=== PATIENT | female | born 1975 | race Caucasian/White ===

== ENCOUNTER → 2021-03-01 | Outpatient (CLI) | payer BC ==
[~2021-03-01] MED LIST: ALBUTEROL INH; ALDACTONE50 MG PO; ASPIR 8181 MG PO; GLUCOPHAGE1000 MG PO; HYDROCHLOROTHIA25 MG PO; NORCO 5-325 TA1 EACH PO; NOVOLOG MI100 UNIT/2 SQ; OMNICEF 300 MG300 MG PO; ONDANSETRON ODT8 MG SL; SYNTHROID50 MCG PO; TOUJEO MAX300 UNIT/1 SQ; TRULICITY1.5 MG/0.5 SQ; VITAMIN D PO
== END ==
LOC: DTC 09:40
DX: E11.65 Type 2 diabetes mellitus with hyperglycemia (principal)
CPT/HCPCS: G0108

== ENCOUNTER → 2021-06-25 | Outpatient (CLI) | payer BC ==
[2021-06-25 15:07] LABS: BUN/CREATININE RATIO 19 (0-10)
== END ==
LOC: LAB 10:59
PROVIDERS: Emergency Medicine
DX: E78.2 Mixed hyperlipidemia (principal); E11.9 Type 2 diabetes mellitus without complications; I10 Essential (primary) hypertension; E03.4 Atrophy of thyroid (acquired)
CPT/HCPCS: 36415; 80053; 80061; 82043; 83036; 84443

== ENCOUNTER → 2021-12-17 | Outpatient (CLI) | payer BC ==
[2021-12-17 08:54] LABS: BUN/CREATININE RATIO 21 (0-10)
== END ==
LOC: LAB 07:30
PROVIDERS: Emergency Medicine
DX: E11.9 Type 2 diabetes mellitus without complications (principal)
CPT/HCPCS: 36415; 80053; 80061; 83036; 84439; 84443

== ENCOUNTER → 2022-05-04 | Outpatient (CLI) | payer BC ==
[2022-05-04 09:08] LABS: BUN/CREATININE RATIO 27 (0-10)
[2022-05-06 11:15] LABS: CREATININE, URINE 39.9 mg/dL (Not Estab.)
== END ==
LOC: LAB 07:38
PROVIDERS: Emergency Medicine
DX: E11.9 Type 2 diabetes mellitus without complications (principal)
CPT/HCPCS: 36415; 80053; 82043; 82570; 83036